=== PATIENT | female | born 1965 | race Caucasian/White ===

== ENCOUNTER 2018-10-25 01:26 | Emergency (ER) | payer MEDICARE, OTHER ==
--- NOTE | 2018-10-25 02:23 | ED Physician Chart ---
ED Chief Complaint/HPI - Patient Information Date Seen:: 10/25/18 Time Seen:: 02:18 Chief Complaint:: rt leg swelling pain History of Present Illness:: 53 yr old female with hx fx rt tibia fibula 08/2018 after fall on the steps cast recently removed and pt with pain swelling she says her doctor wants her to get us to r/o dvt Allergies:: Allergies Allergy/AdvReac Type Severity Reaction Status Date / Time latex Allergy Verified 10/25/18 01:34 Penicillins Allergy Verified 10/25/18 01:34 propoxyphene [From Darvon] Allergy Verified 10/25/18 01:34 tetracycline Allergy Verified 10/25/18 01:34 Vitals:: Vital Signs - 8 hr 10/25/18 01:30 Temp 98.1 F HR 87 RR 20 BP 129/92 O2 Sat % 97 ED Review of Systems - Review of Systems General/Constitutional: No fever, No chills, No weight loss, No weakness, No diaphoresis, No edema, No loss of appetite Skin: No skin lesions, No rash, No bruising Head: No headache, No light-headedness Eyes: No loss of vision, No pain, No diplopia ENT: No earache, No nasal drainage, No sore throat, No tinnitus Neck: No neck pain, No swelling, No thyromegaly, No stiffness, No mass noted Cardio Vascular: No chest pain, No palpitations, No PND, No orthopnea, No edema Pulmonary: No SOB, No cough, No sputum, No wheezing GI: No nausea, No vomiting, No diarrhea, No pain, No melena, No hematochezia, No constipation, No hematemesis G/U: No dysuria, No frequency, No hematuria Musculoskeletal: Bone or joint pain, Other (neck pain hx of disc surgery plate and fusion and rt tib fib fx s/p cast recently removed) Endocrine: No polyuria, No polydipsia Psychiatric: No prior psych history, No depression, No anxiety, No suicidal ideation Hematopoietic: No bruising, No lymphadenopathy Allergic/Immuno: No urticaria, No angioedema Neurological: No syncope, No focal symptoms, No weakness, No paresthesia, No headache, No seizure, No dizziness, No confusion, No vertigo ED Past Medical History - Past Medical History Past Medical History: HTN Surgical History: other (cervical fusion) Family Medical History - Family Member Mother History Unknown: Yes ED Physical Exam - Physical Examination General/Constitutional: Awake, Well-developed, well-nourished, Alert, No distress, GCS 15, Non-toxic appearing, Ambulatory Head: Atraumatic Eyes: Lids, conjuctiva normal, PERRL, EOMI Skin: Nl inspection, No rash, No skin lesions, No ecchymosis, Well hydrated, No lymphadenopathy ENMT: External ears, nose nl, Nasal exam nl, Lips, teeth, gums nl Neck: No JVD, No nuchal rigidity, No bruit, No mass, No stridor Respiratory: Nl effort/Exclusion, Clear to Auscultation, No Wheeze/Rhonchi/Rales Cardio Vascular: RRR, No murmur, gallop, rubs, NL S1 S2 GI: No tenderness/rebounding/guarding, No organomegaly, No hernia, Normal BS's, Nondistended, No mass/bruits, No McBurney tenderness : No CVA tenderness Extremities: No edema (ankle pain decreased rom ant neck fusion decreased rom and pain) Neuro/Psych: Alert/oriented, DTR's symmetric, Normal sensory exam, Normal motor strength, Judgement/insight normal, Mood normal, Normal gait, No focal deficits Misc: Normal back, No paraspinal tenderness ED Assessment - Assessment General Assessment: rt ankle tib fib fx s/p cast removal swelling pain rt leg hx of old cervical fusion chronic pain ED Septic Shock - . Is Septic Shock (SBP<90, OR Lactate>4 mmol\L) present?: No - <6hrs of presentation: Vital Signs: Vital Signs - 8 hr 10/25/18 01:30 Temp 98.1 F HR 87 RR 20 BP 129/92 O2 Sat % 97 ED Reassessment (Disposition) - Reassessment Reassessment:: as before - Diagnosis Diagnosis:: as before - Patient Disposition Discharge/Transfer:: Home Condition at Disposition:: Stable
[2018-10-25] MEDS ORDERED: Acetaminophen 500 MG TAB PO ONE (02:53)
[2018-10-25] MEDS ORDERED: Acetaminophen 500 MG TAB ONE (02:56)
--- NOTE | 2018-10-25 10:04 | Diagnostic Imaging Report ---
Bilateral lower extremity Doppler venous ultrasound exam HISTORY: Pain/swelling Sonographic sector images were obtained through the deep venous systems of both legs. Associated Doppler data was obtained. The exam demonstrates patency of the common femoral, superficial femoral, popliteal, and posterior tibial veins bilaterally. Specifically, no thrombus is seen. There are normal compressibility and augmentation responses. IMPRESSION: Negative exam for deep vein thrombophlebitis.
== END 2018-10-25 04:30 | disposition home or self-care (01) ==
LOC: ER 01:26
DX: M79.89 Other specified soft tissue disorders (principal); M79.604 Pain in right leg; I10 Essential (primary) hypertension; Z98.890 Other specified postprocedural states; Z88.0 Allergy status to penicillin; Z88.1 Allergy status to other antibiotic agents; Z91.040 Latex allergy status; Z88.8 Allergy status to other drugs, medicaments and biological substances
CPT/HCPCS: 93970-TC-50; Z7502; Z7610